=== PATIENT | female | born 1950 | race Caucasian/White ===

== ENCOUNTER 2024-11-23 07:49 | Outpatient (CLI) | payer MEDICARE, SELFPAY ==
--- OUTSIDE RECORDS SUMMARY | 2023-10-03 05:08 | XMS_ITS | Continuity of Care Document ---
Author Organization [facility] [facility] Address [address] [place] [address] Phone Care Team Providers Care Market Manager Name Role Phone Josefa EDWARD, Vilma Unavailable Unavailabl e Allergies, Adverse Reactions, Alerts Substance Reaction Status Criticality No Known Allergies Active No Inform ation Medications Medication Instructions Dosage Effective Dates (start - stop) Status Comments coconut oil 1,000 mg capsule - Active Karuna Chewable Low Dose Aspirin 81 mg tablet chew 1 tablet by oral route every day 81 MG - Active biotin 5,000 mcg sublingual tablet - Active GLUCOSAMINE SULFATE (unknown strength) Not Available - Active melatonin 5 mg capsule - Active VITAMIN D2 (unknown strength) take 1 capsule by oral route every week Not Available - Active losartan 100 mg-hydrochlorothiazi de 25 mg tablet take 1 tablet by oral route every day 1.00 tablet - Active atorvastatin 10 mg tablet take 1 tablet by oral route every day 10 MG - Active clopidogrel 75 mg tablet take 1 tablet by oral route every day 75 MG - Active metformin 500 mg tablet take 1 tablet by oral route 2 times every day with morning and evening meals 500 MG - Active carvedilol 25 mg tablet take 1 tablet by oral route 2 times every day with food 25 MG - Active Procedures Procedure Date COLONOSCOPY, REMOVAL SNARE TECH TISSUE EXAM BY PATHOLOGIST Advance Directives Directive Yes / No Effective Date File Name No Information Encounters Encounter Description Practice Location Reason(s) For Visit Diagnoses Date Provider Providers Copied on Encounter [facility], [address], [place], [place], [id number] , [place] tel:[phone] [facility] No Information Josefa Picha. [address] [place] [address] Office [facility], [address], [id number], . tel:[phone] [facility], [id number] [place] [address], [id number] , tel:[phone] [facility] Encounter for screening for malignant neoplasm of colonPersonal history of colonic polypsBenign neoplasm of transverse colonBenign neoplasm of sigmoid colonDiverticulosi s of large intestine without perforation or abscess without bleeding 4 Josefa Esparza. [facility], [address], [id number], . tel:[phone] Referring Provider: Lucia Harrell , [address] [place] [address], [id number]. tel:[phone] [facility], [address], [place], [place], [id number] , tel:[phone] [facility] No Information 4 Ric Vicente. [address] [place] [address], [id number], . tel:[phone] Referring Provider: Vilma muñiz, [address] [place] [address], [address] . tel:[phone] [facility], [id number] [place] [address], [id number] , tel:[phone] [facility] No Information 8 Nusratwillian Feliciaabiola. [address] [place] [address], [address], [id number], . tel:[phone] Family History Family Member Type Diagnosis Age At Onset Mother Problem (finding) malignant neoplasm of p ancreas Payers Payer name Insurance type Covered green party ID Gabby rg(s) MEDICARE MB [id number] [employer] [id number] Social History Type Description Quantity Date Captured Comments Alcohol Use Details Unknown Caffeine Use Details Unknown Tobacco Use Status No Information Smoking Status No Information Sex Female Sexual Orientation Straight or heterosexual Gender Identity Female Chief Complaint And Reason For Visit No Information Reason For Referral Reason For Referral No Information History Of Present Illness Encounter Date Complaint History Of Prese nt Illness No Information Functional Status Date Functional Assessmen t No Information Instructions Date Instruction Additional Infor mation No Information Assessments Type Assessment Date No Information Patient Care Teams Name Effective Dates (start - stop) Status Members No Information
--- OUTSIDE RECORDS SUMMARY | 2024-02-01 04:30 | XMS_ITS | Continuity of Care Document ---
Author Organization [facility] Address [address] [place] [address] Phone Care Team Providers Care Account Service Associate Name Role Phone House EXCEL DEVELOPER Marylu SEQUEIRA Unavailable Unavail able Allergies, Adverse Reactions, Alerts Substance Reaction Status Criticality No Known Allergies Active No Inform ation Medications Medication Instructions Dosage Effective Dates (start - stop) Status Comments metformin 500 mg tablet take 1 tablet by oral route 2 times every day with morning and evening meals 500 MG - Active losartan 25 mg tablet take 1 tablet by o ral route every day 25 MG - Active carvedilol 6.25 mg tablet take 1 tablet by oral route 2 times every day with food 6.25 MG - Active folic acid 1 mg tablet take 1 tablet by oral route every day 1 MG - Active atorvastatin 10 mg tablet take 1 tablet by oral route every day 10 MG - Active methotrexate sodium 2.5 mg tablet take 1 tablet by oral route every week 2.5 MG - Active duloxetine 20 mg capsule,delayed release take 1 capsule by oral route 2 times every day 20 MG - Active biotin 1 mg tablet - Active Procedures Procedure Date Global/Postop followup visit Global/Postop followup visit Total Knee Replacement Patients who are evaluated for venous th romboembol Revision of kneecap Patients with documented shared decision -making Xray For Joint Survey, Sngl View 2023 Office/outpatient visit,est, mod 2023 Office/outpatient visit,new, mod 2023 Advance Directives Directive Yes / No Effective Date File Name No Information Encounters Encounter Description Practice Location Reason(s) For Visit Diagnoses Date Provider Providers Copied on Encounter [facility], [address] [place] [address], [id number], tel:[phone] [facility] knee (chief complaint) Presence of left artificial knee joint 4 [place] EXCEL DEVELOPER Marylu . [address] [place] [address], [id number] , [place]. [phone] Referring Provider: Gi Mullen, [address] [place] [address], [id number]. tel:[phone] [facility], [address] [place] [address], [id number], tel:[phone] [facility] knee (chief complaint) Presence of left artificial knee joint 4 [place] EXCEL DEVELOPER Marylu . [address] [place] [address], [id number] , [place]. [phone] Referring Provider: Gi Mullen, [address] [place] [address], [id number]. tel:[phone] [facility], [address] [place] [address], [id number], [place] tel:[phone] [facility] No Information 4 Rox Bunch. [address] [place] [address], [id number] , [place]. [phone] Referring Provider: Julio C Gramajo MD T, [address] [place] [address], [id number] . tel:[phone] Office/outpa tient visit,est, mod [facility], [address] [place] [address], [id number], [place] tel:[phone] [facility] knee pain on the left greater than the right (chief complaint) Unilateral primary osteoarthritis, left kneeUnilateral primary osteoarthritis, right knee 4 Rox Bunch. [address] [facility], [place], [place], [id number] , [place]. tel:[phone] Referring Provider: Gi Mullen, [address] [place] [address], [address]. tel:[phone] Office/outpa tient visit,[facility] [facility], [address], [place], [place], [id number], tel:[phone] [facility] knee pain on the left greater than the right (chief complaint) Unilateral primary osteoarthritis, left kneeUnilateral primary osteoarthritis, right knee Rox Bunch. [address] [facility], [address] [facility], [place], [place], [id number] , [place]. tel:[phone] Referring Provider: Gi Mullen, [address] [place] [address], [id number]. tel:[phone] Family History Family Member Type Diagnosis Age At Onset Father Problem (finding) Heart Disease Mother Problem (finding) Cancer, unknown Brother Problem (finding) Heart Disease Mother Problem (finding) Hypertension Payers Payer name Insurance type Covered libertarian ID Authoriza tion(s) [place] NGS Part B [id number] [employer] [id number] Social History Type Description Quantity Date Captured Comments Alcohol Use Details Unknown Caffeine Use Details Unknown Tobacco Use Status No Information Smoking Status No Information Non-Smoking Tobacco Use Details : No Details Available : No Details Available Sex Female Vital Signs Date / Time: Height Weight BMI Pulse Rate Blood Pressure Temperature Respiratory Rate Body Surface Area Head Circumference Head Circ. Percentile Wt./Aleksey. Percentile BMI percentile Pulse Ox Inhaled Ox 9:10 AM 66.00 in 112.037 kg (247.00 lbs) 39.8 6 kg/m eter (2) 2.28 meter(2) Chief Complaint And Reason For Visit From encounter dated '02/01/2024 09:30'. knee (chief complaint). Description: The patient returns 12 weeks from the above procedure. The patient has done well in the interim and notes no wound/skin problems, wound drainage, new neurologicalcomplaints, or abnormal swelling/calf pain. The patient notes they have been compliant with physical therapy and is progressing well. No other complaints noted. They are happy with their progress thus far. Reason For Referral Reason For Referral No Information Plan Of Treatment Date Type Action Status Referral Ordered: Xray For Joint Survey, Sngl View LT knee ordered Referral Ordered: Xray For Joint Survey, Sngl View RT knee ordered History Of Present Illness Encounter Date Complaint History Of Prese nt Illness knee The patient retu rns 12 weeks from the above procedure. The patient has done well in the interim and notes no wound/skin problems, wound drainage, new neurological complaints, or abnormal swelling/calf pain. The patient notes they have been compliant with physical therapy and is progressing well. No other complaints noted. They are happy with their progress thus far. knee The patient retu rns 4 weeks from the above procedure. The patient has done well in the interim and notes no wound/skin problems, wound drainage, new neurological complaints, or abnormal swelling/calf pain. The patient notes they have been compliant with physical therapy and is progressing well. No other complaints noted. knee pain on the lef t greater than the right Christina Rock is a 73 year old female. The patient has significant knee osteoarthritis and presents today in anticipation of planned knee arthroplasty. In addition to the history, today I have reviewed prior lab tests including: CBC, CMP, Hgb A1C. These tests are within acceptable parameters to proceed with planned knee arthroplasty. She presents with decreased range of motion on the right and left side equally and pain on the left greater than the right side. She states that the symptoms have been chronic non-traumatic. The symptoms occur constantly with intermittent worsening. Currently the patient states that the symptoms are incapacitating. The pain is described as aching, sharp and shooting. The symptoms occur with activity. The symptoms are aggravated by daily activities, movement, standing and walking. In addition to knee pain on the left greater than the right the patient is also experiencing crepitus, decreased mobility, difficulty bending, joint pain, limping, night pain and pain after activity. Pertinent negatives include fever, radicular symptoms, numbness and weakness. Pertinent negatives include radicular symptoms, groin pain radiating to the knee. The patient has had a previous x-ray. She has had prior injections, physical therapy/home exercises, ice, OTC meds. The patient has now failed greater than 12 months of non-operative treatment including physical therapy, icing, NSAIDs, brace/gait aides, and the progression/exacerbation of this chronic issue now causes daily pain limiting ADLs including sleep, dressing, self care, and all other desired activities. The patient is therefore indicated for knee arthroplasty. knee pain on the lef t greater than the right Christina Rock is a 73 year old female. The patient has known knee osteoarthritis as well as RA on a monthly infusion and presents for evaluation and treatment noting progression/exacerbation of symptoms and failure of non-op treatments. 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 He moved into a memory care facility in March. She presents with decreased range of motion and swelling on the right and left side equally and pain on the left greater than the right side. She states that the symptoms have been chronic non-traumatic. The symptoms occur constantly with intermittent worsening. The problem is worse. Currently the patient states that the symptoms are incapacitating. The pain is described as aching, localized and sharp. The symptoms occur with activity. The symptoms are aggravated by ascending stairs, daily activities, descending stairs, movement, standing and walking. In addition to knee pain on the left greater than the right the patient is also experiencing crepitus, decreased mobility, difficulty bending, limping, night pain and pain after activity. Pertinent negatives include fever, radicular symptoms, numbness and weakness. The patient has had a previous x-ray. She has had prior injections, physical therapy/home exercises, ice, OTC meds. She notes the last injections in April failed to provide sustained relief. Functional Status Date Functional Assessmen t No Information Instructions Date Instruction Additional Infor gilberto The patient will con tinue to be WBAT. They may progress to activities as tolerated and follow up at 12 months from surgery with repeat films and at 2, 5, and 10 years with x-rays for routine joint surveillance if doing well after that. We discussed the role of joint prophylaxis with oral antibiotics prior to any dental or surgical procedures and to call at any time with questions, concerns, or other issues. Questions answered, verbalized understanding. Related to Presence of left artificial knee joint The details of the p rocedure performed and imaging studies were discussed in detail with the patient. The patient will continue to be WBAT. They may progress to activities as tolerated and follow up at 3 months from surgery with repeat films if needed, or at 1, 2, 5, and 10 years with x-rays for routine joint surveillance if doing well. We discussed the role of joint prophylaxis with oral antibiotics prior to any dental or surgical procedures and to call at any time with questions, concerns, or other issues. Questions answered, verbalized understanding. Related to Presence of left artificial knee joint Will plan on proceed ing with the right when she has recovered to the left. In the interim she will continue her nonoperative treatments. Related to Unilateral primary osteoarthritis, right knee The patient has been cleared for and is indicated to proceed with LEFT total knee arthroplasty with patelloplasty. We discussed in detail risks, benefits, and alternatives, restrictions, rehabilitation, expected outcomes, and possible complications including but not limited to: , medical complication, DVT/PE, infection, stiffness, loosening, instability, injury to nerves, blood vessels, and surrounding soft tissues, possible continued pain, subjective disappointment with the outcome, and possible need for future surgical intervention. The patient expressed understanding and would like to proceed with total knee arthroplasty. DVT prophylaxis will be with Aspirin and home SCD's. They would prefer to do this at [facility] and planned LOS will be 3 night for medical/social comorbidities requiring placement, for which she would prefer [facility]. We discussed the need for pediatric dental assistant at the time of surgery, my nurse practitioners role in the postoperative period, and the rationale for implant selection. We discussed the perioperative pain plan and minimizing opioids. We discussed the importance of the post op rehabilitation process. They had questions answered and verbalized understanding and agreement the plan and would like to proceed. Related to Unilateral primary osteoarthritis, left knee Given the patient's failure of non-operative treatment and progression of symptoms precluding desired activities and ADLs, we discussed they would be a candidate for total knee arthroplasty pending confirmation of her A1C status. We discussed in detail the risks, benefits, and alternatives of elective major surgery and they would like to proceed. They would like to proceed at [facility]. We will arrange for preop education and evaluation via the SEC make arrangements to have preoperative clearance obtained as appropriate, including ordering labs today (CBC, CMP, PT/INR, A1C) and coordinate with PCP/medical specialists as needed. We will order full length standing and calibrated lateral views of the involved knee to template pre-operatively and will select a date for surgery. She will require post op placement and would prefer the [facility] Bed. We discussed optimizing weight and nutrition prior to surgery and she will need to be off her RA infusion for 1 month prior to surgery, restart likely 2 weeks after once the wound appears healed. We would plan on the left first, followed by the right in 2-3 months once ready. I would like to see the patient back once this is all complete to review in detail and make a final decision on operative intervention. Questions answered, verbalized understanding. We discussed the option as well as the risks, benefits, and alternatives to superficial cutaneous and separate deep genicular cryoablation (Iovera) prior to TKA to attempt to decrease knee pain pre and post-operatively and expedite recovery. This FDA approved osteoarthritis treatment has been confirmed in the literature to decrease pain, expedite recovery, and decrease or eliminate narcotic need post-operatively after knee arthroplasty while being proven safe and effective. We discussed in detail the periprocedural restrictions, rehabilitation, and expected outcomes for the procedure as well as possible complications including but not limited to: infection, skin irritation or reaction, nerve or blood vessel injury, continued pain, perceived failure of the procedure. The patient expressed their understanding and has elected to proceed at their earliest convenience. Questions answered, verbalized understanding and agreement. Related to Unilateral primary osteoarthritis, right knee Assessments Type Assessment Date assessment Presence of left artificial knee joint impression s/p Left cemented CS TKA with pa telloplasty (DOS 11/08/23-[facility]) Patient Care Teams Name Effective Dates (start - stop) Status Members No Information
--- OUTSIDE RECORDS SUMMARY | 2024-11-23 08:11 | XMS_ITS | Clinical Summary ---
Author Organization [facility] D Address [address] [place] [address] Care Team Providers Care Radio Maintainer Name Role Phone Gregor Leyva MD Unavailable [phone] Gi Martin MD Primary Care Provider [phone] Allergies Active Allergy Reactions Criticality Noted Date Comments Adhesive Hives High 05/02/2019 Povidone-Iodine Blisters High 02/03/2021 Chocolate Flavor Other (See comments) High 1 Sinus infection Conj Estrog-Medroxyprogest Gustabo Other (See comments) Low 02/03/2021 unknown Mmjvftrt-Jbvqpswuew-Nil ymyxin Rash Medium 02/03/2021 Medications carvedilol (COREG) 25 mg tablet Take 1 tablet (25 mg total) by mouth 2 (two) times a day with meals Active hydroCHLOROthia zide (HYDRODIURIL) 25 mg tablet Take 1 tablet (25 mg total) by mouth every morning 0 Active losartan (COZAAR) 100 mg tablet Take 1 tablet (100 mg total) by mouth every morning 0 Active melatonin 5 mg tablet Take 1 tablet (5 mg total) by mouth nightly as needed Active atorvastatin (LIPITOR) 80 mg tablet Take 1 tablet (80 mg total) by mouth nightly 3 Active semaglutide (Ozempic) 0.25 mg or 0.5 mg (2 mg/3 mL) pen injector injectionIndica tions:type 2 diabetes mellitus Inject 0.5 mg under the skin once a week On Wednesdays Active metFORMIN (GLUCOPHAGE) 500 mg tablet Take 2 tablets (1,000 mg total) by mouth 2 (two) times a day with meals Active DULoxetine DR (CYMBALTA) 60 mg capsule Take 1 capsule (60 mg total) by mouth nightly Active tocilizumab (ACTEMRA) 400 mg/20 mL (20 mg/mL) solution Infuse 23 mL (460 mg total) into a venous catheter every 4 (four) weeks 4 Active aspirin 81 mg enteric coated tabletIndicatio ns:Deep Vein Thrombosis Prevention Take 1 tablet (81 mg total) by mouth 2 (two) times a day 4 Active methotrexate 2.5 mg tabletIndicatio ns:autoimmune disease Take 8 tablets (20 mg total) by mouth once a week 96 tablet 1 4 Active folic acid (FOLVITE) 1 mg tablet TAKE TWO TABLETS BY MOUTH DAILY 180 tablet 1 5 Active ketorolac (ACULAR) 0.5 % ophthalmic solution INSTILL ONE DROP IN LEFT EYE TWICE DAILY 5 Active oxyBUTYnin XL (DITROPAN-XL) 10 mg 24 hr tablet Take 1 tablet (10 mg total) by mouth daily Active acetaminophen (TYLENOL ORAL) Take by mouth A ctive Active Problems Problem Noted Date Diagnosed Date Left ankle pain 12/22/2023 Assessment & Plan (12/22/2023 1:06 PM CDT): Agree with trial of PT, order given. Also discussed use of Voltaren gel, avoid oral NSAIDs. S/P total knee arthroplasty, left 11/08/2023 Primary osteoarthritis of left knee 10/06/2023 Allergic rhinitis 05/12/2021 Benign neoplasm of colon 05/12/2021 Chronic sinusitis 05/12/2021 Contact dermatitis 05/12/2021 Female stress incontinence 05/12/2021 Hyperlipidemia 05/12/2021 Hypertrophic condition of skin 05/12/2021 Malaise and fatigue 05/12/2021 Neoplasm of breast 05/12/2021 Left shoulder pain 05/12/2021 Assessment & Plan (11/27/2021 1:24 PM CDT): Will obtain XR and in the meantime begin trial of Tylenol Arthritis 2 bid Tinea cruris 05/12/2021 Type 2 diabetes mellitus without complication Encounter for medication monitoring 09/20/2020 Assessment & Plan (07/24/2024 3:32 PM CDT): Hepatitis negative 06/2020 Continue routine lab monitoring Assessment & Plan (04/24/2024 9:28 AM COPIER TECHNICIAN): Hepatitis negative 06/2020 Continue routine lab monitoring Assessment & Plan (12/22/2023 11:13 AM CDT): Hepatitis negative 06/2020 Continue routine lab monitoring Assessment & Plan (07/20/2023 10:05 AM CDT): Hepatitis negative 06/2020 Continue routine lab monitoring Assessment & Plan (04/21/2023 9:20 AM COPIER TECHNICIAN): Hepatitis negative 06/2020 Continue routine lab monitoring Assessment & Plan (11/20/2022 10:20 AM CDT): Hepatitis negative 06/2020 Continue routine lab monitoring Assessment & Plan (07/20/2022 10:19 AM CDT): Hepatitis negative 06/2020 Continue routine lab monitoring Assessment & Plan (06/15/2022 9:05 AM CDT): Hepatitis negative 06/2020 Continue routine lab monitoring Assessment & Plan (03/18/2022 9:00 AM COPIER TECHNICIAN): Hepatitis negative 06/2020 Continue routine lab monitoring Assessment & Plan (11/26/2021 3:34 PM CDT): Hepatitis negative 06/2020 Continue routine lab monitoring Assessment & Plan (08/27/2021 9:13 AM CDT): Hepatitis negative 06/2020 Continue routine lab monitoring Assessment & Plan (05/28/2021 10:28 AM CDT): Hepatitis negative 06/2020 Continue routine lab monitoring Assessment & Plan (02/26/2021 8:47 AM COPIER TECHNICIAN): Hepatitis negative 06/2020 Continue routine lab monitoring Assessment & Plan (12/27/2020 9:04 AM CDT): Hepatitis negative 06/2020 Continue routine lab monitoring Assessment & Plan (09/20/2020 12:05 PM CDT): Hepatitis negative 06/2020 Continue routine lab monitoring Neck pain 09/20/2020 Assessment & Plan (04/24/2024 12:11 PM COPIER TECHNICIAN): Neck pain with paraspinal ttp. Previously prescribed tizanidine for this in 2020, she does not recall response. She is interested in trying a different muscle relaxant at bedtime to see if this can help relieve her pain in order to sleep. Will prescribe cyclobenzaprine 5 mg qHS prn and monitor response. Assessment & Plan (09/20/2020 12:07 PM CDT): Neck pain with paraspinal ttp. Per chart has previously taken tizanidine and cyclobenzaprine. She is interested in at least trying a muscle relaxant at bedtime. She is concerned about possible sedation. Will Rx tizanidine 2 - 4 mg qHS to start, if she tolerates without sedation could try adding daytime dosing if needed. Osteoarthritis of multiple joints 07/19/2020 Assessment & Plan (07/25/2024 1:28 PM CDT): Now s/p L TKA. Anticipates need for R TKA, but is deferring this as long as possible. Continue Tylenol, though consider dose increase to 1000 mg bid-tid prn. Continue follow up with ortho as needed/planned. For 1st C[facility], could consider trial of IA injection, deferred for now. Assessment & Plan (04/24/2024 12:12 PM COPIER TECHNICIAN): Now s/p L TKA. Continue follow up with ortho as needed/planned. Assessment & Plan (12/22/2023 1:05 PM CDT): Now s/p L TKA and healing well. Some R knee pain though not as severe as the L had been. Continue follow up with ortho as planned. Assessment & Plan (07/20/2023 12:59 PM CDT): Significant improvement after IA triamcinolone injections in April. Now planning to see ortho to discuss possible TKA. Assessment & Plan (04/21/2023 2:20 PM COPIER TECHNICIAN): Significant improvement after IA triamcinolone injection R knee 11/2022. Last L knee injection on 05/2021. She notes increasing B knee pain and is interested in having injections repeated. She is getting closer to consider TKA, but is not there yet so will schedule for US guided injections. Discussed risk of bleeding and infection. Assessment & Plan (11/20/2022 12:47 PM CDT): Significant improvement after IA triamcinolone injection R knee on 06/29 that last roughly 3 months. Last L knee injection on 05/2021. She notes increasing B knee pain and is interested in having injections repeated. Will first scheduled for US guided injection of the R knee and then will do the L. Discussed risk of bleeding and infection. Assessment & Plan (07/21/2022 11:42 AM CDT): Will continue Cymbalta 60 mg daily. Significant improvement after IA triamcinolone injection R knee on 06/29. Last L knee injection on 05/2021. Continue to monitor. Assessment & Plan (06/15/2022 12:28 PM CDT): Will continue Cymbalta 60 mg daily. Significant improvement after IA triamcinolone injection R knee in December. Last L knee injection on 06/09. She is interested in repeat injections, will arrange for R knee US guided injection first. Assessment & Plan (03/18/2022 11:50 AM COPIER TECHNICIAN): Will continue Cymbalta 60 mg daily. Significant improvement after IA triamcinolone injection R knee in December. Last L knee injection on 06/09. Suspect current hand pain 2/2 OA, recommend trial of Voltaren gel, can also use IcyHot for more immediate relief and increase Tylenol to bid for the next week or two. Assessment & Plan (11/27/2021 1:24 PM CDT): Will continue Cymbalta 60 mg daily. Significant improvement after IA triamcinolone injection L knee 06/09. Last R knee injection on 01/02, requests repeat now. Will schedule R knee injection under US guidance. Assessment & Plan (08/27/2021 12:27 PM CDT): Will continue Cymbalta 60 mg daily. Significant improvement after IA triamcinolone injection R knee on 01/02 and L knee 06/09. Assessment & Plan (05/28/2021 11:59 AM CDT): Will continue Cymbalta 60 mg daily. Significant improvement after IA triamcinolone injection R knee on 01/02. Will arrange for US guided injection of the L knee. Assessment & Plan (02/26/2021 10:40 AM COPIER TECHNICIAN): Will continue Cymbalta 60 mg daily. Significant improvement after IA triamcinolone injection R knee on 01/02. Continue to monitor. Assessment & Plan (12/27/2020 11:36 AM CDT): Will continue Cymbalta 60 mg daily. Given severity of knee pain, recommend PT and offered knee injection, risks reviewed including infection and bleeding risk, pt would like to pursue under ultrasound guidance, will arrange. Assessment & Plan (09/19/2020 8:43 AM CDT): Suspect that the bulk of her pain complaints is 2/2 OA and not RA. Will continue Cymbalta 60 mg daily and monitor response. Encourage exercise, she is planning to begin swimming. Assessment & Plan (08/19/2020 10:52 AM CDT): Suspect that the bulk of her pain complaints is 2/2 OA and not RA. Will continue Cymbalta 60 mg daily and monitor response. Encourage exercise, she is planning to begin swimming. Assessment & Plan (07/19/2020 4:11 PM CDT): Suspect that the bulk of her pain complaints is 2/2 OA and not RA. Given that she noticed benefit with duloxetine 30 mg daily, recommend trial of increased dose at 60 mg daily and monitor response. Seronegative rheumatoid arthritis 07/03/2020 Overview (08/19/2020): Labs 07/04/2020 AVISE: LISA 1:320 homogeneous Hepatitis B/C negative Xrays XR hands, feet, and knees with moderate to early advanced OA Ultrasound US right hand/wrist (07/10/20): Mild/moderate effusions and power doppler on examination. Moderate synovial thickening in the wrist, 3rd and 4th MCP and 2nd PIP joints. Grade 1 effusion and grade 2 power doppler in the 2nd and 3rd MCP joints. Grade 1 effusion in the 3rd and 5th MCP joints. Grade 1 power doppler in the wrist and radial/scaphoid joint. There is a small hyperechoic projection coming off the distal radius at the radial/scaphoid joint line which may represent spurring vs calcification. Assessment & Plan (07/25/2024 1:26 PM CDT): Low cdai and denies inflammatory sounding pain. Overall feels that she is responding well to current regimen and that no change in treatment is warranted. Will continue Actemra and methotrexate 20 mg po weekly with folic acid 2 mg daily. Labs today as below. Plan for follow up in 3-4 months to reassess or sooner as needed. Assessment & Plan (04/24/2024 12:09 PM COPIER TECHNICIAN): In general denies inflammatory sounding pain. Overall feels taht she is responding well to current regimen and that no change in treatment is warranted. Will continue Actemra and methotrexate 20 mg po weekly with folic acid 2 mg daily. Labs today as below. Plan for follow up in 3 months to reassess or sooner as needed. Assessment & Plan (12/22/2023 1:05 PM CDT): Cdai = 12. Previously reported notable improvements after the switch to Actemra IV. In the last couple months had been on both Actemra and methotrexate inconsistently for various reasons reviewed above, now back on both. Will plan to continue current regimen and allow time for effect. Labs today as below. Plan for follow up in 3 months to reassess or sooner as needed. Assessment & Plan (07/20/2023 12:58 PM CDT): Feels and appears improved since switch to Actemra IV. Discussed that a lipid panel should be checked 4-8 weeks after starting Actemra, she reports having had one recently, request copy. Reviewed potential AE of Actemra including possible serologic abnormalities like leukopenia, transaminitis, and thrombocytopenia for which we will monitor. Labs today as below. Otherwise will plan to continue methotrexate 20 mg po weekly, folic acid to 2 mg daily, and Actemra IV and monitor. Plan for follow up in 3 months to reassess or sooner as needed. Assessment & Plan (04/21/2023 2:19 PM COPIER TECHNICIAN): High cdai. At last visit, despite increased synovitis she did not feel any change to her RA regimen was needed. Today she has yet more synovitis. Discussed that we could consider trying to just add another oral dmard, though this may prove insufficient. She then stated that she feels she is no longer responding to Orencia and is interested in changing this. She previously failed Simponi aria and we will avoid Mary due to her cardiac history. Instead discussed Actemra IV, she denies h/o diverticulitis or prior bowel perf/obstruction. Reviewed dosing and potential AE of Actemra including possible serologic abnormalities like leukopenia, transaminitis, and thrombocytopenia for which we will monitor. She is interested in pursuing this, will check benefits. Will continue methotrexate 20 mg po weekly and folic acid to 2 mg daily. Labs as below. Plan for follow up in 2-3 months to reassess or sooner as needed. Assessment & Plan (11/20/2022 12:48 PM CDT): Cdai = 19, moderate. She states today that she does not feel any change to her RA regimen is needed, stating that if not for her knee pain she would overall feel good. Suspect that ultimately she may require additional treatment given the degree of synovitis today, but she defers. Will continue Orencia IV and methotrexate 20 mg po weekly, will increase folic acid to 2 mg daily. Labs as below. Plan for follow up in 3-4 months to reassess or sooner as needed. Assessment & Plan (07/21/2022 11:41 AM CDT): Cdai improved today from 24.5 to 7. She could not tolerate ssz due to GI upset. Discussed my suspicion that her current improvement is due to some systemic absorption from the knee injection that she had a couple weeks ago. My concern is that once the steroid wears off, then she will once again have increased joint pain/swelling/stiffness. However, as she does feel improved at present, will plan to continue Orencia IV and methotrexate 20 mg po weekly with folic acid 1 mg daily. In the future could consider changing to SQ methotrexate. Labs up to date. Plan for follow up in ~3 months to reassess or sooner as needed. Assessment & Plan (06/15/2022 12:27 PM CDT): High cdai. She continues to note benefit with Orencia infusions, though notes increasing stiffness/swelling of her hands and is hoping that more can be done to address this. As she is noticing improvement after Orencia, will continue this for now and instead look at adding another oral dmard. Discussed adding sulfasalazine, denies sulfa allergy. Reviewed potential AE, most commonly GI upset, advised to take with food. Similar to mtx this can cause serologic abnormalities including leukopenia and transaminitis which we will monitor for. Reviewed dosing and discussed starting at 500 mg bid. Otherwise will continue Orencia IV and methotrexate 20 mg po weekly with folic acid 1 mg daily. In the future could consider changing to SQ methotrexate. Labs as below. Plan for follow up in 4 weeks to reassess or sooner as needed. Assessment & Plan (03/18/2022 9:00 AM COPIER TECHNICIAN): Notes improvement in symptoms since starting Orencia IV. Will continue Orencia and methotrexate 20 mg po weekly with folic acid 1 mg daily. Labs today as below. Plan for follow up in 3 months to reassess or sooner as needed. Assessment & Plan (11/26/2021 3:33 PM CDT): Notes improvement in symptoms since starting Orencia IV. Will continue Orencia and methotrexate 20 mg po weekly with folic acid 1 mg daily. Labs today as below. Plan for follow up in 3 months to reassess or sooner as needed. Assessment & Plan (08/27/2021 12:26 PM CDT): Notes improvement in symptoms since starting Orencia IV. Will continue Orencia and methotrexate 20 mg po weekly with folic acid 1 mg daily. Labs today as below. Plan for follow up in 3 months to reassess or sooner as needed. Assessment & Plan (05/28/2021 11:59 AM CDT): High cdai. No notable improvement in symptoms since starting Simponi aria and by exam today actually has increased synovitis. At this time will instead check benefits for Orencia IV, pt agreeable. Continue methotrexate 20 mg po weekly with folic acid 1 mg daily. Labs today as below. Plan for follow up in 2 months to reassess or sooner as needed. Assessment & Plan (02/26/2021 10:39 AM COPIER TECHNICIAN): Moderate cdai. Tolerated first Simponi aria infusion without AE and notes benefit. Will plan to continue methotrexate 20 mg po weekly with folic acid 1 mg daily with Simponi aria and allow time for effect. Pt requests to have maintenance doses of Simponi aria infused at [facility], was told that they would accept our orders. Labs today as below. Plan for follow up in 3 months to reassess or sooner as needed. Assessment & Plan (12/27/2020 11:35 AM CDT): High cdai despite having been on methotrexate for 5 months now, based upon this discussed the addition of a biologic such as Simponi aria; reviewed potential AE including infection risk and PML, pt agreeable will check benefits. Obtain Tspot and CXR. Continue methotrexate 20 mg po weekly with folic acid 1 mg daily. Plan for follow up in 2 months to reassess or sooner as needed. Assessment & Plan (09/20/2020 12:05 PM CDT): Moderate cdai. On methotrexate 20 mg po weekly with folic acid 1 mg daily, recheck labs today as below. Will continue methotrexate 20 mg po weekly with folic acid daily and allow more time for effect. Plan for follow up in 3 months to reassess or sooner as needed. Assessment & Plan (08/19/2020 10:52 AM CDT): Moderate cdai. On methotrexate 12.5 mg po weekly with folic acid 1 mg daily without AE, recheck labs today as below. Will now increase methotrexate to 20 mg po weekly with folic acid daily. Plan for follow up in 4 weeks to reassess or sooner as needed. Assessment & Plan (07/19/2020 4:10 PM CDT): 69yoF presents for evaluation due to joint pain and +LISA. She describes mechanical sounding joint pain affecting her hands, knees, and low back. No significant AM stiffness. Modest benefit with Cymbalta and meloxicam. Now off meloxicam due to AE. Denies recent imaging. By exam she is noted to have several tender and swollen joints in her hands/feet. Thus though her history is more suspicious for OA, her exam was concerning for inflammatory arthritis. Our workup showed LISA 1:320 and US with mild to moderate inflammatory changes. Will initiate treatment with methotrexate 12.5 mg po weekly with folic acid 1 mg daily. Reviewed potential adverse effects including nausea, fatigue, and oral ulcers. Warned to watch for development of any rash and to stop taking and call should this occur. Reviewed need for routine lab monitoring throughout the duration of taking this medication, initially monthly and then quarterly as long as they remain on the medication. Plan for follow up in 4 weeks to reassess or sooner as needed. Assessment & Plan (07/04/2020 3:44 PM CDT): 69yoF presents for evaluation due to joint pain and +LISA. She describes mechanical sounding joint pain affecting her hands, knees, and low back. No significant AM stiffness. Modest benefit with Cymbalta and meloxicam. Denies recent imaging. By exam she is noted to have several tender and swollen joints in her hands/feet. Thus though her history is more suspicious for OA, her exam raises the question of possible overlap with inflammatory arthritis. To further evaluate will check labs, xrays, and ultrasound as below with plan for follow up in 2 weeks to review results and to discuss treatment options. Positive LISA (antinuclear antibody) 07/03/2020 Essential hypertension 05/02/2019 Obstructive sleep apnea syndrome 03/03/2019 Malignant neoplasm of centra l portion of right breast in female, estrogen receptor negative 04/27/2018 Cancer Staging:Pathologic stage from 02/15/2004:Stage IB(pT1c, pN0(sn), cM0, G3, ER: Negative, LA: Negative, HER2: Negative) - Signed by Daniel Tong MD on 05/03/2018 Clinical: Unsigned Mitral valve regurgitation 07/06/2017 Coronary arteriosclerosis 04/07/2017 S/P CABG x 2 02/19/2017 Assessment & Plan (02/19/2017 6:29 AM COPIER TECHNICIAN): Patient is doing well following her double bypass, she will stop her amiodarone, Lasix, and potassium, and she will follow up with her real estate branch manager. Low back pain 09/22/2016 Assessment & Plan (05/28/2021 12:00 PM CDT): Will obtain XR Lspine and SI joints, await findings Obesity with body mass index 30 or greater 09/22 Atrial septal defect 12/03/1996 Functional heart murmur 12/03/1996 Encounters Date Type Department Care Team Description 10/17/2024 1:00 PM CDT Office Visit [facility] [address] [place] [address] [place] [id number] Louis Hudson MD High risk medication use (Primary Dx); Restrictive lung disease; Morbid (severe) obesity due to excess calories (E66.01); Body mass index [BMI] 39.0-39.9, adult (Z68.39) 09/18/2024 3:05 PM CDT - 09/18/2024 11:59 PM CDT Hospital Encounter [facility] [address] [place] [address] Discharge Disposition: Discharge to home or self care 09/05/2024 9:30 AM CDT Office Visit [facility] [address] [place] [address] Louis Hudson MD Lung nodule (Primary Dx); High risk medication use from Last 3 Months Immunizations Immunization Administration Dates Next Due Influenza, Unspecified 01/31/2018 Pneumococcal Conjugate PCV 13 04/06/2017 Pneumococcal Polysaccharide PPV23 06/07/2018 Tdap 03/23/2019,09/29/2013 ZOSTER LIVE 04/05/2014,04/03/2014 Surgical History Surgery Date Site/Laterality Comments BUNIONETTE EXCISION SECTION x2 DILATION AND CURETTAGE, DIAG NOSTIC / THERAPEUTIC MASTECTOMY Right HYSTERECTOMY BREAST BIOPSY CORONARY ARTERY BYPASS GRAFT KNEE SURGERY 10/14/2023 - 11/13/2023 Left Medical History Medical History Date Comments Hyperlipidemia Hypertension Diabetes mellitus (HCC) Morbid obesity with BMI of 40.0-44.9, adult (HCC ) BMI 40 History of breast cancer Primary osteoarthritis of left knee Seronegative rheumatoid arthritis (HCC) Urinary, incontinence, stress female CAD (coronary artery disease) Pulmonary nodule stable without change History of myocardial infarction Osteoporosis Carotid atherosclerosis Diabetic retinopathy (HCC) SUSY on CPAP Diverticulosis LBBB (left bundle branch block) Family History Medical History Relation Name Comments Heart attack Father Cancer Mother Relation Name Status Comments Brother Father Mother Sister Social History Tobacco Use Types Packs/Day Years Used Date Smoking Tobacco: Never Smokeless Tobacco: Never Tobacco Cessation:Counseling Given: Not Answered Alcohol Use Standard Drinks/Week Comments Yes 0 (1 standard drink = 0.6 oz pur e alcohol) social [facility] Utilities Answer Date Recorded In the past 12 months has [employer], gas, oil, or water [employer] threatened to shut off services in your home? No 11/09/2023 Social Connection and Isolation Panel Answer Date Recorded In a typical week, how many times do you talk on the phone with family, friends, or neighbors? More than three times a week 11/09/2023 How often do you get togethe r with friends or relatives? More than three times a week 11/09/2023 How often do you attend chur ch or holiness services? More than 4 times per year 11/09/2023 Do you belong to any clubs o r organizations such as yarsani groups, unions, fraternal or athletic groups, or school groups? Yes 11/09/2023 How often do you attend meet ings of the clubs or organizations you belong to? 1 to 4 times per year 11/09/2023 Are you , , di vorced, , never , or living with a partner? 11/09/2023 AUDIT-C Answer Date Recorded Q1: How often do you have a drink containing alc ohol? 2-4 times a month 11/01/2023 Q2: How many drinks containi ng alcohol do you have on a typical day when you are drinking? 1 or 2 11/01/2023 Q3: How often do you have si x or more drinks on one occasion? Never 11/01/2023 Overall Financial Resource Strain (CARDIA) Answe r Date Recorded How hard is it for you to pa y for the very basics like food, housing, medical care, and heating? Not very hard 11/09/2023 Hunger Vital Sign Answer Date Recorded Within the past 12 months, y ou worried that your food would run out before you got the money to buy more. Never true 11/09/19 24 Within the past 12 months, t he food you bought just didn't last and you didn't have money to get more. Never true 11/09/2023 PRAPARE - Transportation Answer Date Re corded In the past 12 months, has l ack of transportation kept you from medical appointments or from getting medications? No 10/14 In the past 12 months, has l ack of transportation kept you from meetings, work, or from getting things needed for daily living? No 11/09/2023 Housing Stability Vital Sign Answer Jose e Recorded In the last 12 months, was t here a time when you were not able to pay the mortgage or rent on time? No 11/09/2023 In the past 12 months, how m any times have you moved where you were living? 1 11/09/2023 At any time in the past 12 m [facility], were you homeless or living in a detention (including now)? No 11/09/2023 Personal Safety Answer Date Recorded Have you ever been in or are you currently in a harmful physical or emotional relationship or is someone making you feel afraid or unsafe? 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 Gender Identity Not on file Sexual Orientation Not on file Obstetrics History Last Filed Vital Signs Vital Sign Reading Time Taken Comments Blood Pressure 176/80 10/17/2024 1:12 PM CDT Pulse 71 10/17/2024 1:12 PM CDT Temperature 36.7 C (98 F) 10/17/2024 1:12 PM CDT Respiratory Rate 18 10/17/2024 1:12 PM CDT Oxygen Saturation 97% 10/17/2024 1:12 PM CDT Inhaled Oxygen Concentration - - Weight 111.8 kg (246 lb 6.4 oz) 10/17/2024 1:12 PM CDT Height 167.6 cm (5' 6) 10/17/2024 1:12 PM CDT Body Mass Index 39.77 10/17/2024 1:12 PM CDT Plan of Treatment Health Maintenance Due Date Last Done Comments Albumin Creatinine Ratio, Urine 1950 Colon Cancer Screening-Colonoscopy 1950 Depression Screening 1950 Dilated Eye Exam 1950 Foot Exam 1950 Hepatitis B Screening 09/15/1969 Zoster Vaccine (1 of 2) 05/31/2014 04/05/2014, 04/03 Well Visit 65+ 09/15/2016 Lipid Panel 12/30/2017 12/30/2016 Hemoglobin A1C 05/03/2024 11/01/2023, 12/30/2016 Breast Cancer Screening-Mammogram 10/12/2024 10/13/2023, 10/13/2023, 08/27/2022, Additional history exists Fall Risk Assessment 11/10/2024 11/11/2023 Covid-19 Vaccine (2024- 6 season) 2024 03/03/2021, 05/24/2020, 04/22/2020 Influenza Vaccine (#1) 2024 , 05/14/2021, 12/18/2019, Additional history exists Osteoporosis Screening-Bone Density Scan 12/03/2024 12/03/2022 eGFR 07/25/2025 07/25/2024, 04/15, 12/22/2023, Additional history exists DTaP/Tdap/Td Vaccine (4 - Td or Tdap) 04/15/2029 04/15/2019, 03/23/2019, 09/29/2013 Pneumococcal vaccine 65+ Completed 06/07/2018, 03/16 Hepatitis C Screening Completed 07/04/2020 Medical Devices Implanted Type Area Photolith Operator Device Identifier Shelf Expiration Date Model / Serial / Lot [employer] Simplex P Radiopaque Full Dose Cement Bone Sterile 6191-1-010 - [id number] Implanted:Qty: 1 on 11/08/2023 by Julio C Gramajo MD at [facility] Left: Knee [employer] [id number] 09/11/2025 6191-1-01 0 / / [employer] Simplex P Radiopaque Full Dose Cement Bone Sterile 6191-1-010 - [id number] Implanted:Qty: 1 on 11/08/2023 by Julio C Gramajo MD at [facility] Left: Knee [employer] [id number] 09/11/2025 6191-1-01 0 / / [employer] 9mm Condylar Stabilize Knee 4 Insert Tibial All Polyethylene 5534-A-409 - [id number] Implanted:Qty: 1 on 11/08/2023 by Julio C Gramajo MD at [facility] Left: Knee [employer] [id number] 10/28/2027 5534-A-40 [id number] [employer] Triathlon Cruciate Retaining Cemented Knee Left 5 Component 5510-F-501 - [id number] Implanted:Qty: 1 on 11/08/2023 by Julio C Gramajo MD at [facility] Left: Knee [employer] [id number] 01/14/2028 5510-F-50 1 / / [id number] Procedures Procedure Name Priority Date/Time Associated Diagnosis Comments CT BODY OUTSIDE REFERENCE Routine 09/18/2024 3:05 PM CDT COMPREHENSIVE METABOLIC PANEL Routine 07/25/2024 11:52 AM CDT Encounter for medication monitoring HEMOGLOBIN A1C Routine 11/01/2023 10:29 AM CDT Preoperative evaluation to rule out surgical contraindication HEPATITIS C ANTIBODY Routine 07/04/2020 3:06 PM CDT Polyarthralgia Encounter for screening for other viral diseases Chronic fatigue LIPID PANEL Routine 12/30/2016 8:40 PM CDT from Last 3 Months or Most Recently Relevant to Health Maintenance Results * CT Body Outside Reference (09/18/2024 3:05 PM CDT) Narrative DB_KEON_MHB_MHE - 10/19/2024 9:48 AM CDT This order has been auto-finalized and does not contain a result. us Provider Transcribed Order IMG CT PROCEDURES Fin al Result RAD_CLARIO_MHB_MHE * (ABNORMAL) Comprehensive metabolic panel (07/25/2024 11:52 AM CDT) Glucose 178(H) 65 - 99 mg/dL [facility] Comment: Fasting reference interval For someone without known diabetes, a glucose value >125 mg/dL indicates that they may have diabetes and this should be confirmed with a follow-up test. BUN 21 7 - 25 mg/dL [facility] Creatinine 0.54(L) 0.60 - 1.00 mg/dL [facility] eGFR 98 > OR = 60 mL/min/1.7 3m2 [facility] BUN/creat ratio 39(H) 6 - 22 (calc) [facility] Sodium 142 135 - 146 mmol/L [facility] Potassium, pl 4.0 3.5 - 5.3 mmol/L [facility] Chloride 101 98 - 110 mmol/L [facility] CO2 32 20 - 32 mmol/L [facility] Calcium 9.9 8.6 - 10.4 mg/dL [facility] Protein, sr 7.0 6.1 - 8.1 g/dL [facility] Albumin 4.7 3.6 - 5.1 g/dL [facility] GLOBULIN 2.3 1.9 - 3.7 g/dL (calc) [facility] Alb/glob ratio 2.0 1.0 - 2.5 (calc) [facility] Bilirubin, total 1.1 0.2 - 1.2 mg/dL [facility] Alk phos 65 37 - 153 U/L [facility] AST 19 10 - 35 U/L [facility] ALT (SGPT) 28 6 - 29 U/L [facility] Blood 07/25/2024 11:5 2 AM CDT 07/25/2024 11:52 AM CDT Kristine RUTLEDGE LAB BLOOD ORDERABLES Kinsey l Result [facility] [address] [facility] [place] [address] * (ABNORMAL) Hemoglobin A1c (11/01/2023 10:29 AM CDT) Hgb A1C 6.4(H) 4.0 - 5.6 % Estimated Average Glucose 137 mg/dL [facility] Comment: The ADA recommends reporting an estimated Average Glucose (eAG) with all Hemoglobin A1c results using the equation derived from a study of 507 normal and diabetic adults. Minority populations were underrepresented and children were not included. (Diabetes Care 31:9426-3861, 2008). The eAG is not equivalent to a fasting glucose. Blood 11/01/2023 10:2 9 AM CDT 11/01/2023 10:29 AM CDT Lisbeth Martins SECURITY OPERATIONS ENGINEER LAB BLOOD ORDERABLES Fin al Result Performing Organization Address [facility] Co de Phone Number [facility] [address] Department [place] [address] * Hepatitis C antibody (07/04/2020 3:06 PM CDT) Hep C Ab NON-REACTI VE NON-REACT MAGGIE [facility] SIGNAL TO CUT-OFF 0.02 <1.00 [facility] Comment: HCV antibody was non-reactive. There is no laboratory evidence of HCV infection. In most cases, no further action is required. However, if recent HCV exposure is suspected, a test for HCV RNA (test code 86508) is suggested. For additional information please refer to http://education.archify/faq/QTJ60s1 (This link is being provided for informational/ educational purposes only.) Blood specimen (specimen) 07/04/2020 3:06 PM CDT 07/04/2020 3:06 PM CDT Kristine Smith PA LAB MICROBIOLOGY - GENERA L ORDERABLES Final Result Performing Organization Address [facility] Co de Phone Number [facility] [address] [place] [address] * Lipid panel (12/30/2016 8:40 PM CDT) Cholesterol 156 30 - 200 mg/dL [facility] Comment: Interpretive Data Desirable: <200 mg/dL Borderline high: 200-239 mg/dL High: >240 mg/dL Literature Reference: National Cholesterol Education Program (NCEP) Expert Panel on Detection, Evaluation, and Treatment of High Blood Cholesterol in Adults (Adult Treatment Panel III). Circulation 2004; 110:227. Current Interpretive Data was last revised on 2016. HDL 51 >=40 mg/dL [facility] Comment: Interpretive Data Males: Desireable: = or > 60 mg/dL Hirgher risk: < 40 mg/dL Females: Desireable: = or > 60 mg/dL Hirgher risk: < 50 mg/dL Literature Reference: National Cholesterol Education Program (NCEP) Expert Panel on Detection, Evaluation, and Treatment of High Blood Cholesterol in Adults (Adult Treatment Panel III).Circulation 2004; 110:227. Current interpretive data was last revised on 2016. LDL, calculated 79.80 10.00 - 129.00 mg/dL [facility] Comment: Interpretive Data Desirable: < 100 mg/dL Borderline High: 130 - 159 mg/dL High: 160-189 mg/dL Very High: = or > 190 mg/dL Literature Reference: National Cholesterol Education Program (NCEP) Expert Panel on Detection, Evaluation, and Treatment of High Blood Cholesterol in Adults (Adult Treatment Panel III).Circulation 2004; 110:227. Current Interpretive Data was last revised on 2016. Chol/HDL ratio 3.[address] [facility] Triglycerides 126 0 - 150 mg/dL [facility] Comment: Interpretive Data Desirable: <150 mg/dL Borderline high: 150-199 mg/dL High: >200 mg/dL Literature Reference: National Cholesterol Education Program (NCEP) Expert Panel on Detection, Evaluation, and Treatment of High Blood Cholesterol in Adults (Adult Treatment Panel III). Circulation 2004; 110:227. Current Interpretive Data was last revised on 2016. Blood specimen (specimen) 12/30/2016 8:40 PM CDT 12/30/2016 8:42 PM CDT us Khalif Jones MD LAB BLOOD ORDERABLES Final Result 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
--- OUTSIDE RECORDS SUMMARY | 2024-11-23 08:11 | XMS_ITS ---
Author Organization [facility] Address [address] [place] [address] Care Team Providers Care Senior Data Warehouse Architect Name Role Phone Gregor Leyva MD Unavailable [phone] Gi Martin MD Primary Care Provider [phone] Active Problems Problem Noted Date Diagnosed Date [...] monitoring Assessment & Plan (04/24/2024 9:28 AM SURGERY SCHEDULING COORDINATOR): Hepatitis negative 06/2020 Continue routine lab monitoring Assessment & Plan (12/22/2023 11:13 AM CDT): Hepatitis negative 06/2020 Continue routine lab monitoring Assessment & Plan (07/20/2023 10:05 AM CDT): Hepatitis negative 06/2020 Continue routine lab monitoring Assessment & Plan (04/21/2023 9:20 AM SURGERY SCHEDULING COORDINATOR): Hepatitis negative 06/2020 Continue routine lab monitoring Assessment & Plan (11/20/2022 10:20 AM CDT): Hepatitis negative 06/2020 Continue routine lab monitoring Assessment & Plan (07/20/2022 10:19 AM CDT): Hepatitis negative 06/2020 Continue routine lab monitoring Assessment & Plan (06/15/2022 9:05 AM CDT): Hepatitis negative 06/2020 Continue routine lab monitoring Assessment & Plan (03/18/2022 9:00 AM SURGERY SCHEDULING COORDINATOR): Hepatitis negative 06/2020 Continue routine lab monitoring Assessment & Plan (11/26/2021 3:34 PM CDT): Hepatitis negative 06/2020 Continue routine lab monitoring Assessment & Plan (08/27/2021 9:13 AM CDT): Hepatitis negative 06/2020 Continue routine lab monitoring Assessment & Plan (05/28/2021 10:28 AM CDT): Hepatitis negative 06/2020 Continue routine lab monitoring Assessment & Plan (02/26/2021 8:47 AM SURGERY SCHEDULING COORDINATOR): Hepatitis negative 06/2020 Continue routine lab monitoring Assessment & Plan (12/27/2020 9:04 AM CDT): Hepatitis negative 06/2020 Continue routine lab monitoring Assessment & Plan (09/20/2020 12:05 PM CDT): Hepatitis negative 06/2020 Continue routine lab monitoring Neck pain 09/20/2020 Assessment & Plan (04/24/2024 12:11 PM SURGERY SCHEDULING COORDINATOR): Neck pain with paraspinal ttp. Previously prescribed [...] now. Assessment & Plan (04/24/2024 12:12 PM SURGERY SCHEDULING COORDINATOR): Now s/p L TKA. Continue follow up [...] TKA. Assessment & Plan (04/21/2023 2:20 PM SURGERY SCHEDULING COORDINATOR): Significant improvement after IA triamcinolone injection R [...] first. Assessment & Plan (03/18/2022 11:50 AM SURGERY SCHEDULING COORDINATOR): Will continue Cymbalta 60 mg daily. Significant [...] knee. Assessment & Plan (02/26/2021 10:40 AM SURGERY SCHEDULING COORDINATOR): Will continue Cymbalta 60 mg daily. Significant [...] needed. Assessment & Plan (04/24/2024 12:09 PM SURGERY SCHEDULING COORDINATOR): In general denies inflammatory sounding pain. Overall [...] needed. Assessment & Plan (04/21/2023 2:19 PM SURGERY SCHEDULING COORDINATOR): High cdai. At last visit, despite increased [...] needed. Assessment & Plan (03/18/2022 9:00 AM SURGERY SCHEDULING COORDINATOR): Notes improvement in symptoms since starting Orencia [...] needed. Assessment & Plan (02/26/2021 10:39 AM SURGERY SCHEDULING COORDINATOR): Moderate cdai. Tolerated first Simponi aria infusion without AE and notes benefit. Will plan to continue methotrexate 20 mg po weekly with folic acid 1 mg daily with Simponi aria and allow time for effect. 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 Low back pain 09/22/2016 Assessment & Plan (05/28/2021 12:00 PM CDT): Will obtain XR Lspine and SI joints, await findings Obesity with body mass index 30 or greater 09/22 Atrial septal defect 12/03/1996 Functional heart murmur 12/03/1996 Current Treatment and Therapy Plans No current plan information found. Past Treatment and Therapy Plans No past plan information found. Lifetime Dose Tracking * Chemical Lifetime Dose Automatic Entry Manual Entr y DLP 98 mGycm 98 mGycm 0 mGycm
--- NOTE | 2024-12-22 10:14 | P.SLEEP_ITS ---
Sleep Study Date of Study: 11/23/24 Ordering Provider: Buster Gilbert, SUMMER ANALYST Interpreting Physician: Jeanie Butler DO Sleep Study Type: CPAP Titration Height: 1.68 m Weight: 110.223 kg Body Mass Index: 39.2 Neck Circumference (inches): 18 [place]: 15 Reason for Sleep Study Daytime hypersomnia Sleep History The patient is a 74-year-old female that had a sleep study ordered by ENT physician. The patient was previously diagnosed with sleep apnea and has been on CPAP. She has been compliant with CPAP therapy but her residual AHI is been elevated. The patient denies awakening from sleep short of breath. She denies awakening at night with heartburn, belching or cough. She frequently snores. She occasionally has trouble sleeping when she has a cold. She denies waking up gasping for air throughout the night. She denies having breathing problems at night observed by herself or others. She denies sweating excessively at night. She denies having heart palpitations or irregular heartbeats during the night. She frequently falls asleep during the day but never while driving. She denies sleep paralysis and cataplexy. She occasionally has trouble at school or work due to sleepiness. She frequently experiences vivid dreamlike scenes upon awakening or falling asleep. She denies feeling afraid of going to sleep. She occasionally has nightmares. She occasionally remembers her dreams. She freque ntly has thoughts racing through her mind. She occasionally feels sad, depressed and anxious. She denies having muscular tension. He occasionally notices parts of her body jerk. She denies kicking during the night. She denies having crawling and aching feelings in her legs and denies having leg pain during the night. She denies awakening with morning jaw pain. She is occasionally bothered by pain during the day and occasionally awakened by pain during the night. She constantly wakes up feeling stiff in the morning. She occasionally wakes up with sore or achy muscles. She frequently wakes up with pain in the neck, spine or other joints. She goes to bed between 10-11 p.m. every night. It takes her a few minutes to fall asleep. She wakes up 1-2 times throughout the night to urinate is able to fall back asleep immediately. She wakes up between 8:29 a.m. every morning. She typically gets 9-12 hours of sleep per night. She currently lives alone. She denies consuming any caffeinated beverages within 2 hours of bedtime. She denies engaging in physical exercise before bedtime. She will read and watch television before falling asleep. She will occasionally take naps in the afternoon or the evening but they are not refreshing. She consumes 3-4 cups of a caffeinated beverage per day. She does consume alcoholic beverages on the weekends. She denies tobacco and recreational drug use. Sleep Procedure A full night CPAP Titration using the Kwestr multi-channel system recorded the standard physiologic parameters including EEG, EOG, submentalis EMG, anterior tibialis EMG, EKG, body position, nasal and oral airflow using nasal pressure sensor and thermistor.? Respiratory parameters of chest and abdominal movements were recorded with Respiratory Inductance Plethysmography belts. Oxygen saturation was recorded by pulse oximetry. Video monitoring was also performed. Sleep stages, periodic limb movements, and EEG arousals were scored in 30 second epochs according to the criteria of the AASM Scoring Manual. The Apnea-Hypopnea Index was calculated using CMS guidelines for definition of hypopnea with 4% O2 desaturations while scoring respiratory events. Sleep Architecture The total recording time was 535.5 minutes.? The total sleep time was 287.5 min utes. Sleep latency was 45.5 minutes. REM sleep was not achieved during this portion of the study. Sleep efficiency was 53.7%. The patient had 61 awakenings for an awakening index of 12.7. Wake after Sleep Onset time was 202.5 minutes. The patient spent 109.5 minutes, 38.1% of total sleep time in Stage N1. The patient spent 178.0 minutes, 61.9% in Stage N2. The patient spent 0.0 minutes, 0.0% in Stage N3. The patient spent 0.0 minutes, 0.0% in Stage REM. Respiratory Analysis The patient had 39 hypopneas and 6 obstructive apneas for an overall Apnea Hypopnea Index of 9.4 events per hour. The REM Apnea Hypopnea Index was 0. The NREM Apnea Hypopnea Index was 9.4. The patient had a Central Apnea Hypopnea Index of 0. There was no evidence of Fred-Johnson Respirations. The patient was started on CPAP 5 cm H2O and titrated to CPAP 17 cm H2O due to obstructive apneas and hypopneas. The patient was able to fall asleep starting on CPAP 5 cm H2O. The patient was unable to achieve REM sleep during this study. The patient was able to achieve a residual AHI less than 5 on the final pressure setting. On CPAP 17 cm H2O, the patient spent 20 minutes in NREM with 1 hypopnea, resulting in an AHI of 3.0. The patient had a sleep efficiency of 87% on this pressure setting. Arousals There were 223 total arousals for an arousal index of 46.5. There were 114 spontaneous arousals for an index of 23.8. ?There were 21 arousals due to respiratory events for an index of 4.4. There were 63 arousals due to periodic limb movements for an index of 13.1.? There were 25 arousals due to isolated limb movements for an index of 5.2. Periodic Limb Movements The patient had 58 isolated limb movements with an index of 12.1. The patient had 130 periodic limb movements with index of 27.1, which is elevated (normal < 15). Patient had a total of 188 limb movements with a total limb movement index of 39.2. Oximetry Data The patient had an average oxygen saturation of 96.1% in sleep with a minimum oxygen saturation of 89.0% and a maximum oxygen saturation of 99.0%. The patient had 44 oxygen desaturations that were 4% or greater resulting in an Oxygen Desaturation Index of 9.2.? The patient spent 0 minutes of total sleep time with an oxygen saturation below 88%. Snoring Profile Mild to moderate snoring was present in the beginning of the study. The snoring resolved once the patient was titrated to CPAP 15 cm H2O. Cardiac Profile The EKG showed normal sinus rhythm with occasional PVCs. The patient had an average pulse rate of 72.1 bpm with a minimum pulse rate of 62.0 bpm and a maximum pulse rate of 89.0 bpm. ? EEG Profile No signs of seizure activity seen. Assessment and Plan Assessment and Plan (1) USSY (obstructive sleep apnea): Code(s): G47.33 - Obstructive sleep apnea (adult) (pediatric) Status: Acute Assessment and Plan: The patient was started on CPAP 5 cm H2O and titrated to CPAP 17 cm H2O due to obstructive apneas and hypopneas. The patient's sleep apnea resolved on the final pressure setting. I recommend that the patient be prescribed CPAP 17 cm H2O, size medium Resmed AirFit N30i nasal mask, CPAP filters/tubing and heated humidity. This should be used with all episodes of sleep.? Compliance should be reviewed within 31-90 days of starting therapy for usage greater than 4 hours per night greater than 70% of the nights. The patient should be asked about symptoms such as?excessive daytime sleepiness, quality of sleep, decreased nocturia, increased?mental functioning such as memory, mood, and concentration. While the patient had a significant number of periodic limb movements during the study, the frequency drastically decreased once the patient was titrated to the optimal pressure setting. Data The data obtained during this sleep study is adequate for interpretation. Certification This sleep study has been reviewed by a board certified sleep medicine physician.
[2024-12-26 09:46] VITALS: BMI 39.2
== END 2024-11-24 06:55 | disposition home or self-care (01) ==
LOC: ANHCSM 07:52
PROVIDERS: Visit Provider Nurse Practitioner Family
DX: G47.33 Obstructive sleep apnea (adult) (pediatric) (principal)
CPT/HCPCS: 95811